=== PATIENT | male | born 1955 | race Caucasian/White ===

== ENCOUNTER 2017-10-09 21:25 | Observation (INO) | payer OTHER ==
[~2017-10-09] VITALS: Ht 167.6 cm; Wt 82.8 kg
[2017-10-09 21:26] VITALS: BP 158/99; PULSE 98; RESP 20; TEMP 98.7; O2SAT 97
[2017-10-09 21:37] VITALS: BP 139/88; PULSE 85; RESP 16; O2SAT 98
[2017-10-09] MEDS ORDERED: GLIP5TAB8 PO (21:41)
--- NOTE | 2017-10-09 21:49 | PD ---
HPI Chief Complaint: CHEST PAIN Time Seen by Provider: 21:36 Travel History International Travel<30 days: No Contact w/Intl Traveler<30days: No Traveled to known affect area: No History of Present Illness HPI PATIENT C/O 4 HR CHEST PAIN, SHARP, SUBSTERNAL, NONRADIATING, 7/10 ASSOCIATED WITH SOB AND DRY COUGH...NO ALLEVIATING/AGGRAVATING FACTORS...DENIES ASSOC FACTORS SUCH TAYLOR/VISUAL CHANGES/FEVER/ABD PAIN/BACK PAIN/N/V/D/ RN NOTES REVIEWED, PATIENT IS NEW TO HOSPITAL AND CITY (FROM [place], RECENTLY MOVED) ALL:DENIES PMHX SIG FOR DM, CHOL, HTN. NO PCP DENIED ANY HEART/CHEST/ABDOMINAL SURGERY PFSH Social History Tobacco Use: No Allergies-Medications (Allergen,Severity, Reaction): Coded Allergies: No Known Allergies (Unverified , 10/09/17) Reported Meds & Prescriptions Reported Meds & Active Scripts Active Reported Losartan (Losartan Potassium) 25 Mg Tab Unknown Dose PO DAILY Lovastatin 10 Mg Tab 10 Mg PO DAILY Glipizide 5 Mg Tab 5 Mg PO BIDAC Take 30 minutes before a meal Review of Systems General / Constitutional: No: Fever Eyes: No: Visual changes HENT: No: Headaches Cardiovascular: Positive: Chest Pain or Discomfort Respiratory: Positive: Cough Gastrointestinal: No: Abdominal Pain Genitourinary: No: Dysuria Musculoskeletal: No: Pain Skin: No Rash Neurologic: No: Weakness Psychiatric: No: Depression Endocrine: No: Polydipsia Hematologic/Lymphatic: No: Easy Bruising Physical Exam Narrative GENERAL: SKIN: Warm and dry. HEAD: Atraumatic. Normocephalic. EYES: Pupils equal and round. No scleral icterus. No injection or drainage. ENT: No nasal bleeding or discharge. Mucous membranes pink and moist. NECK: Trachea midline. No JVD. CARDIOVASCULAR: Regular rate and rhythm. RESPIRATORY: No accessory muscle use. Clear to auscultation. Breath sounds equal bilaterally. GASTROINTESTINAL: Abdomen soft, non-tender, nondistended. MUSCULOSKELETAL: Extremities without clubbing, cyanosis, or edema. No obvious deformities. NEUROLOGICAL: Awake and alert. No obvious cranial nerve deficits. Motor grossly within normal limits. Five out of 5 muscle strength in the arms and legs. Normal speech. PSYCHIATRIC: Appropriate mood and affect; insight and judgment normal. Data Data Last Documented VS Vital Signs Date Time Temp Pulse Resp B/P (MAP) Pulse Ox O2 Delivery O2 Flow Rate FiO2 10/10/17 01:20 72 16 115/65 (82) 99 Room Air 10/09/17 22:07 2.00 10/09/17 21:26 98.7 Orders Orders Electrocardiogram (10/09/17 21:36) B-Type Natriuretic Peptide (10/09/17 21:36) Ckmb (Isoenzyme) Profile (10/09/17 21:36) Complete Blood Count With Diff (10/09/17 21:36) Comprehensive Metabolic Panel (10/09/17 21:36) D-Dimer (10/09/17 21:36) Prothrombin Time / Inr (Pt) (10/09/17 21:36) Act Partial Throm Time (Ptt) (10/09/17 21:36) Troponin I (10/09/17 21:36) Lipase (10/09/17 21:36) Chest, Single Ap (10/09/17 21:36) Ecg Monitoring (10/09/17 21:36) Bilateral Bp Monitoring (10/09/17 21:36) Iv Access Insert/Monitor (10/09/17 21:36) Oximetry (10/09/17 21:36) Oxygen Administration (10/09/17 21:36) Aspirin Chew (Aspirin Chew) (10/09/17 22:15) Nitroglycerin 2% Oint (Nitroglycerin 2% (10/09/17 22:15) Morphine Inj (Morphine Inj) (10/09/17 22:45) CKMB (10/09/17 21:50) CKMB% (10/09/17 21:50) Ventilation & Perfusion Scan (10/10/17 23:20) Admit Order (Ed Use Only) (10/10/17 ) Dianeticist / Telemetry [email or web address].[email or web address] (10/10/17 03:19) Activity Bed Rest (10/10/17 03:19) Notify Dr: Other (10/10/17 03:19) Labs Laboratory Tests Test 10/09/17 21:50 White Blood Count 10.7 TH/MM3 Red Blood Count 4.20 MIL/MM3 Hemoglobin 12.2 GM/DL Hematocrit 37.4 % Mean Corpuscular Volume 88.9 FL Mean Corpuscular Hemoglobin 29.1 PG Mean Corpuscular Hemoglobin Concent 32.7 % Red Cell Distribution Width 14.2 % Platelet Count 276 TH/MM3 Mean Platelet Volume 8.3 FL Neutrophils (%) (Auto) 58.1 % Lymphocytes (%) (Auto) 27.1 % Monocytes (%) (Auto) 9.2 % Eosinophils (%) (Auto) 4.7 % Basophils (%) (Auto) 0.9 % Neutrophils # (Auto) 6.2 TH/MM3 Lymphocytes # (Auto) 2.9 TH/MM3 Monocytes # (Auto) 1.0 TH/MM3 Eosinophils # (Auto) 0.5 TH/MM3 Basophils # (Auto) 0.1 TH/MM3 CBC Comment DIFF FINAL Differential Comment Prothrombin Time 10.5 SEC Prothromb Time International Ratio 1.0 RATIO Activated Partial Thromboplast Time 25.4 SEC D-Dimer Quantitative (PE/DVT) 0.66 MG/L FEU Blood Urea Nitrogen 60 MG/DL Creatinine 2.71 MG/DL Random Glucose 78 MG/DL Total Protein 8.5 GM/DL Albumin 3.8 GM/DL Calcium Level 8.8 MG/DL Alkaline Phosphatase 61 U/L Aspartate Amino Transf (AST/SGOT) 17 U/L Alanine Aminotransferase (ALT/SGPT) 32 U/L Total Bilirubin 0.3 MG/DL Sodium Level 137 MEQ/L Potassium Level 4.5 MEQ/L Chloride Level 108 MEQ/L Carbon Dioxide Level 19.5 MEQ/L Anion Gap 10 MEQ/L Estimat Glomerular Filtration Rate 24 ML/MIN Total Creatine Kinase 239 U/L Creatine Kinase MB 4.6 NG/ML Troponin I LESS THAN 0.02 NG/ML B-Type Natriuretic Peptide 10 PG/ML Lipase 346 U/L [facility] Medical Decision Making Medical Screen Exam Complete: Yes Emergency Medical Condition: Yes Medical Record Reviewed: Yes Interpretation(s) EKG APPEARED TO HAVE LEAD REVERSAL WITH UPRIGHT P WAVE ON AVR YET DOWNWARD P WAVES ON I/AVL/II ETC, EKG WAS REPEATED AND SHOWED SAME PATTERN. Differential Diagnosis STEMI V NONSTEMI V PNA V PE V PULM EDEMA Narrative Course V/Q SCAN LOW RISK FOR PE...WAS FOUND TO HAVE E/O RENAL INSUFFICIENCY UNKNOWN CHRONICITY DUE TO RECENTLY MOVED TO [facility] AND DENIES H/O CKD....TROP NEG BUT SLIGHTLY ELEV CKMB...PATIENT IS PAINFREE AT THIS POINT. Diagnosis Primary Impression: CHEST PAIN R/O [place] Additional Impression: RENAL INSUFFICIENCY UNKNOWN CHRONICITY Admitting Information Admitting Physician Requests: Observation Martin Boyce MD Oct 09, 2017 21:49
[2017-10-09] MEDS ORDERED: LOVA10TA PO (21:57)
[2017-10-09] MEDS ORDERED: LOSA25TA PO (21:58)
--- NOTE | 2017-10-09 22:00 | RADRPT ---
EXAM DATE/TIME: 10/09/2017 21:46 [facility] COMPARISON: No previous studies available for comparison. INDICATIONS : Chest pain. MEDICAL HISTORY : Diabetes mellitus type II. Hypertension Hypercholesterolemia. SURGICAL HISTORY : None. ENCOUNTER: Initial ACUITY: 1 day PAIN SCORE: 9/10 LOCATION: Bilateral chest FINDINGS: A single view of the chest demonstrates the lungs to be symmetrically aerated without evidence of mas s, infiltrate or effusion. Mild basilar atelectasis. Mild cardiomegaly. Tortuous aorta. CONCLUSION: 1. Mild basilar atelectasis. No effusion. Heart size mildly enlarged a tortuous aorta. Healing left p osterior rib fractures. Francisco Camacho MD on October 09, 2017 at 21:57 Board Certified Radiologist. This report was verified electronically.
[2017-10-09 22:06] VITALS: BP 139/88; PULSE 81; RESP 16; O2SAT 98
[2017-10-09 22:07] VITALS: O2SAT 98
[2017-10-09] MEDS ORDERED: NITROGLYCERIN 2% OINT 1 GM PACKET TOP ONE (22:15)
[2017-10-09] MEDS ORDERED: MORPHINE SULFATE 4 MG/ML INJ IV PUSH ONE (22:15)
[2017-10-09] MEDS ORDERED: ASPIRIN 81 MG CHEW TAB PO ONE (22:15)
[2017-10-09 22:23] LABS: AUTOMATED NEUTROPHIL # 6.2 TH/MM3 (1.8-7.7); BASOPHIL # 0.1 TH/MM3 (0-0.2); BASOPHIL % 0.9 % (0.0-2.0); EOSINOPHIL # 0.5 TH/MM3 (0-0.4); EOSINOPHIL % 4.7 % (0.0-4.0); HEMATOCRIT 37.4 % (39.0-51.0); HEMO FLAGS DIFF FINAL; LYMPH % 27.1 % (9.0-44.0); LYMPHOCYTE # 2.9 TH/MM3 (1.0-4.8); MEAN CELL VOLUME 88.9 FL (80.0-100.0); MEAN CORPUSCULAR HEMOGLOBIN 29.1 PG (27.0-34.0); MEAN CORPUSCULAR HGB CONC 32.7 % (32.0-36.0); MONO % 9.2 % (0.0-8.0); NEUT % 58.1 % (16.0-70.0); PLATELET COUNT 276 TH/MM3 (150-450); RED CELL DISTRIBUTION WIDTH 14.2 % (11.6-17.2); WHITE BLOOD COUNT 10.7 TH/MM3 (4.0-11.0)
[2017-10-09 22:37] LABS: APTT (PATIENT) 25.4 SEC (24.3-30.1); PROTHROMBIN TIME - PATIENT 10.5 SEC (9.8-11.6)
[2017-10-09] MEDS ORDERED: MORPHINE SULFATE 2 MG/ML INJ PO ONE (22:45)
[2017-10-09] MEDS ORDERED: MORPHINE SULFATE 2 MG/ML INJ IV ONE (22:45)
[2017-10-09 22:58] LABS: ANION GAP 10 MEQ/L (5-15); AST (GOT) 17 U/L (15-37); BICARBONATE 19.5 MEQ/L (21.0-32.0); BLOOD UREA NITROGEN 60 MG/DL (7-18); CHLORIDE 108 MEQ/L (98-107); GLOMERULAR FILTRATION RATE 24 ML/MIN (>89); POTASSIUM 4.5 MEQ/L (3.5-5.1); SODIUM (NA) 137 MEQ/L (136-145)
[2017-10-09 23:04] LABS: ALKALINE PHOSPHATASE 61 U/L (45-117); ALT (GPT) 32 U/L (12-78); CREATINE KINASE 239 U/L (39-308); TOTAL BILIRUBIN ADULT 0.3 MG/DL (0.2-1.0)
[2017-10-09 23:16] LABS: CKMB 4.6 NG/ML (0.5-3.6)
[2017-10-10 01:20] VITALS: BP 115/65; PULSE 72; RESP 16; O2SAT 99
--- NOTE | 2017-10-10 02:22 | RADRPT ---
EXAM DATE/TIME: 10/10/2017 01:47 [facility] COMPARISON: No previous studies available for comparison. INDICATIONS : Substernal chest pain with dyspnea. DOSE: 8.5 mCi Tc99m MAA IV 1.8 mCi Tc99m DTPA aerosol MEDICAL HISTORY : Hypertension. Diabetes mellitus type 2. SURGICAL HISTORY : Appendectomy. Right hip. ENCOUNTER: Initial ACUITY: 1 day PAIN SCALE: 4/10 LOCATION: Left chest TECHNIQUE: Following five minutes of tidal breathing of DTPA aerosol, planar images of the lungs were performed in eight projections. The patient was then injected with MAA, and eight-view perfusion scan was perf ormed. FINDINGS: There is a homogeneous pattern of aerosol delivery to the periphery of both lungs. No focal ventilat ory defects are seen. The perfusion lung scan demonstrates a homogenous pattern of uptake in both lungs. No segmental or s ubsegmental defects are seen. CONCLUSION: Normal pattern of pulmonary perfusion. Study is low probability for embolus. Robert Townsend MD on October 10, 2017 at 2:20 Board Certified Radiologist. This report was verified electronically.
[2017-10-10] MEDS ORDERED: MAGNESIUM HYDROXIDE SUSP 30 ML CUP PO PRN (03:30)
[2017-10-10] MEDS ORDERED: ACETAMINOPHEN 325 MG TAB PO PRN (03:30)
[2017-10-10] MEDS ORDERED: DEXTROSE 50% IN WATER 50 ML VIAL(D50) IV PUSH PRN (03:30)
[2017-10-10] MEDS ORDERED: SENNOSIDES 8.6 MG TAB PO PRN (03:30)
[2017-10-10] MEDS ORDERED: BISACODYL 10 MG SUPP RECTAL PRN (03:30)
[2017-10-10] MEDS ORDERED: ONDANSETRON HCL 4 MG/2 ML VIAL IVP PRN (03:30)
[2017-10-10] MEDS ORDERED: GLUCAGON 1 MG/ML VIAL OTHER PRN (03:30)
[2017-10-10] MEDS ORDERED: SODIUM CHLORIDE 0.9% FLUSH 10 ML FLUSH IV FLUSH PRN (03:30)
[2017-10-10] MEDS ORDERED: LACTULOSE SYRUP 20 GM/30 ML CUP PO PRN (03:30)
--- NOTE | 2017-10-10 04:06 | HHI.HP ---
[facility] Admission Diagnosis CP R/O MA Diagnoses: (1) Chest pain Diagnosis: Principal (2) Renal insufficiency Diagnosis: Principal (3) HTN (hypertension) Diagnosis: Principal (4) DM (diabetes mellitus) Diagnosis: Principal Travel History International Travel<30 Days: No Contact w/Intl Traveler <30 Da: No Traveled to Known Affected Are: No History of Present Illness This is a 62-year-old male with a PMH of HTN, Hyperlipidemia and DM who presented to the ER with complaints of chest pain starting earlier today. Reports associated SOB and cough. No fever, chills or sick contacts. On arrival, CBC essentially unremarkable except for hemoglobin 12.2. Creatinine 2.71, no previous labs for comparison. Troponin negative. D-dimer 0.66. CXR with mild basilar atelectasis. V/Q Scan low probability for PE. S/p NTG w/ improvement. Review of Systems Except as stated in HPI: all other systems reviewed are Neg ROS: 14 point review of systems otherwise negative. Past Family Social History Past Medical History PMH: HTN, Hyperlipidemia and DM Past Surgical History PAST SURGICAL HISTORY: Appendectomy, Right Hip Surgery Allergies: Coded Allergies: No Known Allergies (Unverified , 10/09/17) Family History PAST FAMILY HISTORY: Reviewed, positive for DM. Social History PAST SOCIAL HISTORY: Negative for alcohol, tobacco or drugs. Physical Exam Vital Signs Vital Signs Date Time Temp Pulse Resp B/P (MAP) Pulse Ox O2 Delivery O2 Flow Rate FiO2 10/10/17 01:20 72 16 115/65 (82) 99 Room Air 10/09/17 22:07 98 10/09/17 22:07 98 Nasal Cannula 2.00 10/09/17 22:07 97 Nasal Cannula 10/09/17 22:06 81 16 139/88 (105) 98 Nasal Cannula 2.00 10/09/17 21:37 85 16 139/88 (105) 98 10/09/17 21:26 98.7 98 20 158/99 (118) 97 Room Air Physical Exam PE: GENERAL: Middle-aged male in no acute distress. HEENT: PERRLA, EOMI. No scleral icterus or conjunctival pallor. No lid lag or facial droop. CARDIOVASCULAR: Regular rate and rhythm. No obvious murmurs to auscultation. No chest tenderness to palpation. RESPIRATORY: No obvious rhonchi or wheezing. Clear to auscultation. Breath sounds equal bilaterally. GASTROINTESTINAL: Abdomen soft, non-tender, nondistended. BS normal. MUSCULOSKELETAL: Extremities without clubbing, cyanosis, or edema. No obvious deformities. NEUROLOGICAL: Awake, alert and oriented x4. No focal neurologic deficits. Moving both upper and lower extremities spontaneously. Laboratory Laboratory Tests Test 10/09/17 21:50 White Blood Count 10.7 Red Blood Count 4.20 Hemoglobin 12.2 Hematocrit 37.4 Mean Corpuscular Volume 88.9 Mean Corpuscular Hemoglobin 29.1 Mean Corpuscular Hemoglobin Concent 32.7 Red Cell Distribution Width 14.2 Platelet Count 276 Mean Platelet Volume 8.3 Neutrophils (%) (Auto) 58.1 Lymphocytes (%) (Auto) 27.1 Monocytes (%) (Auto) 9.2 Eosinophils (%) (Auto) 4.7 Basophils (%) (Auto) 0.9 Neutrophils # (Auto) 6.2 Lymphocytes # (Auto) 2.9 Monocytes # (Auto) 1.0 Eosinophils # (Auto) 0.5 Basophils # (Auto) 0.1 CBC Comment DIFF FINAL Differential Comment Prothrombin Time 10.5 Prothromb Time International Ratio 1.0 Activated Partial Thromboplast Time 25.4 D-Dimer Quantitative (PE/DVT) 0.66 Blood Urea Nitrogen 60 Creatinine 2.71 Random Glucose 78 Total Protein 8.5 Albumin 3.8 Calcium Level 8.8 Alkaline Phosphatase 61 Aspartate Amino Transf (AST/SGOT) 17 Alanine Aminotransferase (ALT/SGPT) 32 Total Bilirubin 0.3 Sodium Level 137 Potassium Level 4.5 Chloride Level 108 Carbon Dioxide Level 19.5 Anion Gap 10 Estimat Glomerular Filtration Rate 24 Total Creatine Kinase 239 Creatine Kinase MB 4.6 Troponin I LESS THAN 0.02 B-Type Natriuretic Peptide 10 Lipase 346 Result Diagram: 10/09/17214910/09/172149 Caprini VTE Risk Assessment Caprini VTE Risk Assessment: No/Low Risk (score <= 1) Caprini Risk Assessment Model Point Value = 1 Point Value = 2 Point Value = 3 Point Value = 5 Age 41-60 Minor surgery BMI > 25 kg/m2 Swollen legs Varicose veins or History of unexplained or recurrent spontaneous Oral contraceptives or hormone replacement Sepsis (< 1 month) Serious lung disease, including pneumonia (< 1 month) Abnormal pulmonary function Acute myocardial infarction Congestive heart failure (< 1 month) History of inflammatory bowel disease Medical patient at bed rest Age 61-74 Arthroscopic surgery Major open surgery (> 45 min) Laparoscopic surgery (> 45 min) Malignancy Confined to bed (> 72 hours) Immobilizing plaster cast Central venous access Age >= 75 History of VTE Family history of VTE Factor V Leiden Prothrombin [id number] Lupus anticoagulant Anticardiolipin antibodies Elevated serum homocysteine Heparin-induced thrombocytopenia Other congenital or acquired thrombophilia Stroke (< 1 month) Elective arthroplasty Hip, pelvis, or leg fracture Acute spinal cord injury (< 1 month) Prophylaxis Regimen Total Risk Factor Score Risk Level Prophylaxis Regimen 0-1 Low Early ambulation 2 Moderate Order ONE of the following: *Sequential Compression Device (SCD) *Heparin 5000 units SQ BID 3-4 Higher Order ONE of the following medications: *Heparin 5000 units SQ TID *Enoxaparin/Lovenox 40 mg SQ daily (WT < 150 kg, CrCl > 30 mL/min) *Enoxaparin/Lovenox 30 mg SQ daily (WT < 150 kg, CrCl > 10-29 mL/min) *Enoxaparin/Lovenox 30 mg SQ BID (WT < 150 kg, CrCl > 30 mL/min) AND/OR *Sequential Compression Device (SCD) 5 or more Highest Order ONE of the following medications: *Heparin 5000 units SQ TID (Preferred with Epidurals) *Enoxaparin/Lovenox 40 mg SQ daily (WT < 150 kg, CrCl > 30 mL/min) *Enoxaparin/Lovenox 30 mg SQ daily (WT < 150 kg, CrCl > 10-29 mL/min) *Enoxaparin/Lovenox 30 mg SQ BID (WT < 150 kg, CrCl > 30 mL/min) AND *Sequential Compression Device (SCD) Assessment and Plan Problem List: (1) Chest pain ICD Code: R07.9 - Chest pain, unspecified (2) Renal insufficiency ICD Code: N28.9 - Disorder of kidney and ureter, unspecified (3) HTN (hypertension) ICD Code: I10 - Essential (primary) hypertension (4) DM (diabetes mellitus) ICD Code: E11.9 - Type 2 diabetes mellitus without complications Assessment and Plan A/P: 1. Chest Pain: acute onset of chest pain, s/p NTG w/ relief, currently chest pain free. No h/o CAD. Trop negative, EKG w/ no acute ischemia. Admit for Observation, telemetry, check serial cardiac enzymes, Lipid Profile, TSH, start ASA/Statin/Metoprolol. Cardio eval as needed. 2. Renal Insufficiency: Creatinine 2.71. Unknown chronicity, recently moved from [place], no previous labs for comparison, denies known h/o renal disease. Check U/a, UDS, Renal US, IVF for hydration, repeat labs in am. Nephrology eval as needed. 3. HTN: BP 150's on arrival, likely compounded by chest pain, currently 115/65 , HR 72. Monitor BP. 4. DM: Sliding scale w/ Accu-Cheks. Check Hgb A1c. 5. DVT Prophylaxis: Heparin 6. Social work for d/c planning as needed. 7. Case discussed w/ ER physician at length. Brunilda Murillo MD Oct 10, 2017 04:06
[2017-10-10 04:25] VITALS: BP 139/72; PULSE 82; RESP 16; O2SAT 99
[2017-10-10 05:30] VITALS: BP 107/75; PULSE 78; RESP 22; TEMP 97.6; O2SAT 96
[2017-10-10] MEDS: MORPHINE SULFATE 2 MG/ML INJ IV PUSH PRN ×3 (06:32→18:45)
[2017-10-10] MEDS ORDERED: glipiZIDE 5 MG TAB PO SCH (07:00)
[2017-10-10] MEDS: INSULIN ASPART SUPPLEMENTAL SCALE SQ SCH ×4 (08:00→21:00)
[2017-10-10 08:26] LABS: AUTOMATED NEUTROPHIL # 6.1 TH/MM3 (1.8-7.7); BASOPHIL # 0.1 TH/MM3 (0-0.2); EOSINOPHIL # 0.9 TH/MM3 (0-0.4); EOSINOPHIL % 9.2 % (0.0-4.0); HEMATOCRIT 36.9 % (39.0-51.0); HEMO FLAGS DIFF FINAL; LYMPH % 20.7 % (9.0-44.0); LYMPHOCYTE # 2.1 TH/MM3 (1.0-4.8); MEAN CELL VOLUME 89.1 FL (80.0-100.0); MEAN CORPUSCULAR HEMOGLOBIN 30.1 PG (27.0-34.0); MEAN CORPUSCULAR HGB CONC 33.7 % (32.0-36.0); MONO % 8.3 % (0.0-8.0); NEUT % 60.8 % (16.0-70.0); PLATELET COUNT 285 TH/MM3 (150-450); RED BLOOD COUNT 4.14 MIL/MM3 (4.50-5.90); RED CELL DISTRIBUTION WIDTH 14.1 % (11.6-17.2); WHITE BLOOD COUNT 10.1 TH/MM3 (4.0-11.0)
[2017-10-10 08:46] LABS: ANION GAP 11 MEQ/L (5-15); AST (GOT) 19 U/L (15-37); BICARBONATE 19.9 MEQ/L (21.0-32.0); BLOOD UREA NITROGEN 61 MG/DL (7-18); CHLORIDE 108 MEQ/L (98-107); GLOMERULAR FILTRATION RATE 26 ML/MIN (>89); POTASSIUM 4.5 MEQ/L (3.5-5.1); SODIUM (NA) 139 MEQ/L (136-145)
[2017-10-10 08:47] LABS: ALT (GPT) 32 U/L (12-78)
[2017-10-10 08:57] LABS: ALKALINE PHOSPHATASE 56 U/L (45-117); HDL CHOLESTEROL 43.5 MG/DL (40.0-60.0); LDL CHOLESTEROL 94 MG/DL (0-99); TOTAL BILIRUBIN ADULT 0.3 MG/DL (0.2-1.0)
[2017-10-10] MEDS ORDERED: METOPROLOL TARTRATE 25 MG TAB PO SCH (09:00)
[2017-10-10] MEDS ORDERED: PRAVASTATIN SOD 10 MG TAB PO SCH (09:00)
[2017-10-10] MEDS: SODIUM CHLORIDE 0.9% FLUSH 10 ML FLUSH IV FLUSH SCH ×2 (09:00→23:18)
[2017-10-10] MEDS: ASPIRIN EC 81 MG TABEC PO SCH (09:00)
[2017-10-10] MEDS: HEPARIN SODIUM - SQ 10,000 UNITS/ML VIAL SQ SCH ×2 (09:00→21:00)
[2017-10-10] MEDS: DOCUSATE SODIUM 50 MG/SENNA 8.6 MG TAB PO SCH ×2 (09:04→21:00)
--- NOTE | 2017-10-10 10:22 | HHI.PR ---
Subjective Remarks Follow for chest pain Patient is a poor historian. Patient stated that chest pain started yesterday. Describes chest pain as pressure-like, radiating to his left lower cheek/jaw. Deny nausea vomiting with the chest pain. Patient stated that with the chest pain started his friend took him to the emergency department. He is unsure when the chest pain stopped but later described the chest pain more like an achy type of pain. Different from what his initial chest pain was. Patient unsure if pain was relieved by nitroglycerin but stated from prior physician chest pain was relieved with nitroglycerin. During the chest pain patient also has shortness of breathing. Patient smokes 1 pack per day for about 20 years. He stated that his father had extensive heart disease. Objective Vitals Vital Signs Date Time Temp Pulse Resp B/P (MAP) Pulse Ox O2 Delivery O2 Flow Rate FiO2 10/10/17 06:37 14 10/10/17 05:30 97.6 78 22 107/75 (86) 96 10/10/17 05:00 10/10/17 04:25 82 16 139/72 (94) 99 Room Air 10/10/17 01:20 72 16 115/65 (82) 99 Room Air 10/09/17 22:07 98 10/09/17 22:07 98 Nasal Cannula 2.00 10/09/17 22:07 97 Nasal Cannula 10/09/17 22:06 81 16 139/88 (105) 98 Nasal Cannula 2.00 10/09/17 21:37 85 16 139/88 (105) 98 10/09/17 21:26 98.7 98 20 158/99 (118) 97 Room Air Result Diagram: 10/10/17 0811 10/10/17 0811 Objective Remarks GENERAL: in NAD CARDIOVASCULAR: Regular rate and rhythm without murmurs, gallops, or rubs. + TTP reproducible on chest wall. RESPIRATORY: Breath sounds equal bilaterally. No accessory muscle use. GASTROINTESTINAL: Abdomen soft, non-tender, nondistended. MUSCULOSKELETAL: No cyanosis, or edema. BACK: Nontender without obvious deformity. No CVA tenderness. Medications and IVs Current Medications Aspirin (Aspirin Chew) 162 mg ONCE ONCE PO Last administered on 10/09/17t 22: 35; Start 10/09/17 at 22:15; Stop 10/09/17 at 22:16; Status DC Morphine Sulfate (Morphine Inj) 2 mg ONCE ONCE IV PUSH ; Start 10/09/17 at 22: 15; Stop 10/09/17 at 22:16; Status Cancel Nitroglycerin (Nitroglycerin 2% Oint) 0.5 inch ONCE ONCE TOP Last administered on 10/09/17 22:34; Start 10/09/17 at 22:15; Stop 10/09/17 at 22 :16; Status DC Morphine Sulfate (Morphine Inj) 2 mg ONCE ONCE PO ; Start 10/09/17 at 22:45; Stop 10/09/17 at 22:46; Status Cancel Morphine Sulfate (Morphine Inj) 2 mg ONCE ONCE IV Last administered on 22:44; Start 10/09/17 at 22:45; Stop 10/09/17 at 22:46; Status DC Dextrose (D50w (Vial) Inj) 50 ml UNSCH PRN IV PUSH HYPOGLYCEMIA-SEE COMMENTS; Start 10/10/17 at 03:30 Glucagon (Glucagon Inj) 1 mg UNSCH PRN OTHER HYPOGLYCEMIA-SEE COMMENTS; Start 10/10/17 at 03:30 Insulin Aspart (NovoLOG SUPPLEMENTAL SCALE) 1 ACHS SLIDING SCALE SQ ; Start at 08:00 Sodium Chloride (NS Flush) 2 ml UNSCH PRN IV FLUSH FLUSH AFTER USING IV ACCESS Last administered on 10/10/17 06:32; Start 10/10/17 at 03:30 Sodium Chloride (NS Flush) 2 ml BID IV FLUSH Last administered on 10/10/17 09 :00; Start 10/10/17 at 09:00 Ondansetron HCl (Zofran Inj) 4 mg Q6H PRN IVP NAUSEA OR VOMITING; Start at 03:30 Heparin Sodium (Porcine) (Heparin Inj) 5,000 units Q12H SQ ; Start 10/10/17 at 09:00 Acetaminophen (Tylenol) 650 mg Q6H PRN PO FEVER/PAIN SCALE 1 TO 2; Start 10/10 at 03:30 Acetaminophen/ Hydrocodone Bitart (Manor 5-325 Mg) 1 tab Q4H PRN PO PAIN SCALE 3 TO 5; Start 10/10/17 at 03:30 Morphine Sulfate (Morphine Inj) 2 mg Q3H PRN IV PUSH PAIN SCALE 6 TO 10 Last administered on 10/10/17 06:32; Start 10/10/17 at 03:45 Senna/Docusate Sodium (Mally-Colace) 1 tab BID PO Last administered on 09:04; Start 10/10/17 at 09:00 Magnesium Hydroxide (Milk Of Magnesia Liq) 30 ml Q12H PRN PO Mild constipation ; Start 10/10/17 at 03:30 Sennosides (Senokot) 17.2 mg Q12H PRN PO Moderate constipation; Start at 03:30 Bisacodyl (Dulcolax Supp) 10 mg DAILY PRN RECTAL SEVERE CONSITIPATION; Start 10/10/17 at 03:30 Lactulose (Lactulose Liq) 30 ml DAILY PRN PO SEVERE CONSITIPATION; Start 10/10 at 03:30 Aspirin (Ecotrin Ec) 81 mg DAILY PO ; Start 10/10/17 at 09:00 Metoprolol Tartrate (Lopressor) 12.5 mg Q12HR PO Last administered on 09:04; Start 10/10/17 at 09:00 Glipizide (Glucotrol) 5 mg BIDAC PO Last administered on 10/10/17 06:24; Start 10/10/17 at 07:00; Status Future Hold Pravastatin Sodium (Pravachol) 10 mg DAILY PO Last administered on 10/10/17 09:04; Start 10/10/17 at 09:00 A/P Problem List: (1) Chest pain ICD Code: R07.9 - Chest pain, unspecified (2) Renal insufficiency ICD Code: N28.9 - Disorder of kidney and ureter, unspecified (3) HTN (hypertension) ICD Code: I10 - Essential (primary) hypertension (4) DM (diabetes mellitus) ICD Code: E11.9 - Type 2 diabetes mellitus without complications Assessment and Plan 52-year-old male history of hypertension, type 2 diabetes, and tobacco dependence who presented with chest pain Chest pain -Per medical records chest pain was relieved by nitroglycerin. Troponin so far negative. Chest pain now is different from his initial chest pain. Patient currently on aspirin. Will add Nitropaste, seen as needed. LDL 94. Consider statin if this is true ACS. Will get nuclear stress test and echo. -Due to patient being high risks and concerns for this being cardiac in nature will consult spa supervisor for further recommendation. Renal Insufficiency: Creatinine 2.71. Unknown chronicity, recently moved from [place], no previous labs for comparison, denies known h/o renal disease. -Strict ins and outs. -Continue to monitor creatinine. -Avoid nephrotoxins. HTN: -Improved. Continue current regimen. DM: -continue with Sliding scale w/ Accu-Cheks. -Pending hemoglobin [id number] HgA1C DVT Prophylaxis: Heparin Paz Man MD Oct 10, 2017 10:22
--- NOTE | 2017-10-10 10:54 | EKG ---
Date Performed: 10/09/2017 Time Performed: 21:36:27 PTAGE: 62 years EKG: Sinus rhythm POSSIBLE SEPTAL MYOCARDIAL INFARCTION POSSIBLE INFERIOR MYOCARDIAL INFARCTION ABNORMAL ECG NO PREVIOUS TRACING DOCTOR: Shorty Hammond Interpretating Date/Time 10/10/2017 10:53:31
[2017-10-10 11:05] LABS: HEMOGLOBIN A1a 1.1 %; HEMOGLOBIN A1b 2.7 %; HEMOGLOBIN Ao 80.4 %; HEMOGLOBIN LA1C 2.7 %; HEMOGLOBIN P3 6.8 %
[2017-10-10] MEDS: NITROGLYCERIN 2% OINT 1 GM PACKET TOPICAL SCH ×3 (12:00→18:00)
--- NOTE | 2017-10-10 12:16 | MB ---
cc: LAZARO FARRELL M.D. DATE OF CONSULTATION: 10/10/2017 REASON FOR CONSULTATION: Chest pain. HISTORY OF PRESENT ILLNESS: The patient is a 62-year-old white male with a history of hypertension, hyperlipidemia, diabetes, who was in his usual state of health up until the day of admission when he began to experience a substernal chest discomfort described as "tightness" associated with shortness of breath, and possibly lightheadedness. He felt weak and fell to the ground. A bystander offered to take him to the emergency department for further evaluation and treatment. The patient cannot recall any other episodes of chest discomfort. Today his chest feels "sore to touch." He denies pleurisy, syncope, near-syncope, palpitations, pedal edema, paroxysmal nocturnal dyspnea. Occasionally he feels lightheaded upon standing. PAST MEDICAL HISTORY: 1. Hypertension. 2. Diabetes. 3. Hyperlipidemia. PAST SURGICAL HISTORY: 1. Appendectomy. 2. Hernia repair. CARDIAC MEDICATIONS AT HOME: 1. Losartan 25 milligrams qd. 2. Lovastatin 10 mg daily. ALLERGIES NO KNOWN DRUG ALLERGIES. FAMILY HISTORY The patient's father sustained a myocardial infarction. The patient is unsure of his father's age at the time of the event. SOCIAL HISTORY The patient quit smoking about a year ago. He denies alcohol abuse. REVIEW OF SYSTEMS: As in the history of present illness, otherwise negative or noncontributory. He also denies headache, abdominal pain, melena, dyspepsia, bright red blood per rectum. PHYSICAL EXAMINATION: VITAL SIGNS: Blood pressure is 107/75 with a pulse of 78, respiratory rate 22. GENERAL: He is a well-developed, well-nourished white male in no acute distress. HEENT: Jugular venous pressure is normal. Carotid pulses are 2+ bilaterally and without bruits. CHEST: Reveals clear lung zelaya. There is chest wall tenderness in the left parasternal region, reproducing his chest pain. CARDIAC: He has a regular rhythm and rate without S3-S4 or murmur. ABDOMEN: He has a soft, obese, nontender abdomen. Bowel sounds are present. There is no definite hepatosplenomegaly. EXTREMITIES: No clubbing, cyanosis or edema. EKG: Normal sinus rhythm, possible inferior infarct and possible septal infarct, age undetermined. LABORATORY DATA: WBC 10.1, hemoglobin 12.5, platelet count 285, potassium 4.5, BUN 61, creatinine 2.49, negative cardiac enzymes. Total cholesterol 174, LDL 94, HDL 43, triglycerides 183. IMPRESSION: Somewhat atypical chest pains in this 62-year-old white male with a history of hypertension, diabetes, hyperlipidemia. The patient is is a vague historian. Cardiac enzymes are negative for myocardial infarction. EKG shows no acute ST-segment or T-wave changes. There is also chest wall tenderness on exam, reproducing his symptoms. He does have a number of risk factors for coronary disease and his EKG does suggest the possibility of previous septal and inferior infarcts. At this point he is not a good candidate for invasive cardiac evaluation with the increased risk of dye induced renal failure. RECOMMENDATIONS 1. Medical therapy of possible underlying coronary artery disease. 2. Change the nitrate to oral administration. 3. Continue beta maurilio therapy and aspirin. 4. Check a 2-D echo to assess his left ventricular and valvular function. 5. Continue statin therapy; overall would recommend atorvastatin or Crestor. MD MANNIE Mcmullen/DOUG /11:46 AM /12:05 PM MTDD
[2017-10-10 12:20] VITALS: BP 112/60; PULSE 68; RESP 20; TEMP 97.8; O2SAT 95
[2017-10-10] MEDS: ACETAMINOPHEN/HYDROcodone 325 MG/5 MG TAB PO PRN ×2 (12:43→21:39)
[2017-10-10] MEDS: ISOSORBIDE MONONITRATE 60 MG TAB PO SCH (12:43)
--- NOTE | 2017-10-10 13:38 | RADRPT ---
EXAM DATE/TIME: 10/10/2017 13:06 [facility] COMPARISON: No previous studies available for comparison. INDICATIONS : Increased BUN/creatinine. MEDICAL HISTORY : Hypercholesterolemia. Hypertension. Herniated disc. Diabetes. SURGICAL HISTORY : Appendectomy. Right hip reduction. Hernia repair. ENCOUNTER: Initial ACUITY: 1 day PAIN SCORE: 0/10 LOCATION: Bilateral flank MEASUREMENTS: RIGHT KIDNEY: 11.0 x 5.0 x 5.5 cm LEFT KIDNEY: 10.5 x 3.7 x 5.3 cm FINDINGS: RIGHT KIDNEY: Renal cortex is normal in thickness and increased in echotexture. No hydronephrosis, or mass. Echo genic 7 x 7 x 4 mm possible stone mid right kidney LEFT KIDNEY: Renal cortex is normal in thickness and increased in echotexture. No hydronephrosis, or mass other than small cortical cyst mid pole measuring 1.8 cm. Question of 7 mm stone lower pole.. BLADDER: Within normal limits given the degree of distension. CONCLUSION: Both kidneys show some increased cortical echogenicity suggesting chronic medical renal disease. Smal l left renal cyst. Bilateral solitary questionable calcifications, could be stones. Ashok Lopez MD on October 10, 2017 at 13:34 Board Certified Radiologist. This report was verified electronically.
[2017-10-10 16:05] VITALS: BP 115/66; PULSE 97; RESP 18; TEMP 98.5; O2SAT 96
[2017-10-10 20:21] VITALS: BP 131/77; PULSE 103; RESP 24; TEMP 98.7; O2SAT 95
[2017-10-10] MEDS ORDERED: ATORVASTATIN 40 MG TAB PO SCH (21:00)
[2017-10-10] MEDS: METOPROLOL TARTRATE 25 MG TAB PO SCH (23:20)
[2017-10-11 00:34] VITALS: BP 92/55; PULSE 73; RESP 24; TEMP 97.7; O2SAT 94
[2017-10-11] MEDS: NITROGLYCERIN 2% OINT 1 GM PACKET TOPICAL SCH ×2 (01:09→06:44)
[2017-10-11 03:33] VITALS: BP 111/59; PULSE 72; RESP 22; TEMP 98.3; O2SAT 93
[2017-10-11] MEDS: ACETAMINOPHEN/HYDROcodone 325 MG/5 MG TAB PO PRN ×3 (04:13→11:59)
[2017-10-11 08:00] VITALS: BP 113/60; PULSE 67; RESP 20; TEMP 98; O2SAT 92
[2017-10-11] MEDS: INSULIN ASPART SUPPLEMENTAL SCALE SQ SCH ×2 (08:00→12:00)
[2017-10-11] MEDS: ISOSORBIDE MONONITRATE 60 MG TAB PO SCH (08:38)
[2017-10-11] MEDS: SODIUM CHLORIDE 0.9% FLUSH 10 ML FLUSH IV FLUSH SCH (08:39)
[2017-10-11] MEDS: ASPIRIN EC 81 MG TABEC PO SCH (08:39)
[2017-10-11] MEDS: METOPROLOL TARTRATE 25 MG TAB PO SCH (08:39)
[2017-10-11] MEDS: HEPARIN SODIUM - SQ 10,000 UNITS/ML VIAL SQ SCH (08:39)
[2017-10-11] MEDS: DOCUSATE SODIUM 50 MG/SENNA 8.6 MG TAB PO SCH (08:39)
--- NOTE | 2017-10-11 09:01 | PD.CARD.PN ---
Subjective Subjective Remarks Feels well. Denies CP, dyspnea, palpitations. Slept well. Mild lightheadedness on standing. Objective Medications Item Value Date Time Metoprolol 25 mg 10/10/17 2100 Tartrate Q12HR/PO 10/11/17 0839 (Lopressor) Atorvastatin 40 mg 10/10/17 2100 Calcium HS/PO 10/10/17 2321 (Lipitor) Isosorbide 60 mg 10/10/17 1200 Mononitrate DAILY/PO 10/11/17 0838 (Imdur) Nitroglycerin 0.5 inch 10/10/17 1030 (Nitroglycerin Q6HR/TOPICAL 10/11/17 0644 2% Oint) Aspirin 81 mg 10/10/17 0900 (Ecotrin Ec) DAILY/PO 10/11/17 0839 Current Medications Medications (Trade) Dose Ordered Sig/Suni Route Start Time Stop Time Status Last Admin (D50w (Vial) Inj) 50 ml UNSCH PRN IV PUSH 10/10/17 03:30 (Glucagon Inj) 1 mg UNSCH PRN OTHER 10/10/17 03:30 (NovoLOG SUPPLEMENTAL SCALE) 1 ACHS SLIDING SCALE SQ 10/10/17 08:00 (NS Flush) 2 ml UNSCH PRN IV FLUSH 10/10/17 03:30 10/10/17 06:32 (NS Flush) 2 ml BID IV FLUSH 10/10/17 09:00 10/11/17 08:39 (Zofran Inj) 4 mg Q6H PRN IVP 10/10/17 03:30 (Heparin Inj) 5,000 units Q12H SQ 10/10/17 09:00 10/11/17 08:39 (Tylenol) 650 mg Q6H PRN PO 10/10/17 03:30 ([place] 5-325 Mg) 1 tab Q4H PRN PO 10/10/17 03:30 10/11/17 08:42 (Morphine Inj) 2 mg Q3H PRN IV PUSH 10/10/17 03:45 10/10/17 18:45 (Mally-Colace) 1 tab BID PO 10/10/17 09:00 10/11/17 08:39 (Milk Of Magnesia Liq) 30 ml Q12H PRN PO 10/10/17 03:30 (Senokot) 17.2 mg Q12H PRN PO 10/10/17 03:30 (Dulcolax Supp) 10 mg DAILY PRN RECTAL 10/10/17 03:30 (Lactulose Liq) 30 ml DAILY PRN PO 10/10/17 03:30 (Ecotrin Ec) 81 mg DAILY PO 10/10/17 09:00 10/11/17 08:39 (Glucotrol) 5 mg BIDAC PO 10/10/17 07:00 Future Hold 10/10/17 06:24 (Nitroglycerin 2% Oint) 0.5 inch Q6HR TOPICAL 10/10/17 10:30 10/11/17 06:44 (Lopressor) 25 mg Q12HR PO 10/10/17 21:00 10/11/17 08:39 (Imdur) 60 mg DAILY PO 10/10/17 12:00 10/11/17 08:38 (Lipitor) 40 mg HS PO 10/10/17 21:00 10/10/17 23:21 Vital Signs / I&O Vital Signs Date Time Temp Pulse Resp B/P (MAP) Pulse Ox O2 Delivery O2 Flow Rate FiO2 10/11/17 03:33 98.3 72 22 111/59 (76) 93 10/11/17 00:34 97.7 73 24 92/55 (67) 94 10/10/17 20:21 98.7 103 24 131/77 (95) 95 10/10/17 16:05 98.5 97 18 115/66 (82) 96 10/10/17 12:48 20 10/10/17 12:20 97.8 68 20 112/60 (77) 95 I/O 10/10/17 10/10/17 10/10/17 10/11/17 10/11/17 10/11/17 07:00 15:00 23:00 07:00 15:00 23:00 Intake Total 480 ml Balance 480 ml Intake Oral 480 ml # Voids 2 # Bowel Movements 1 Physical Exam GENERAL: Well developed, well nourished. No acute distress. HEENT: Jugular venous pressure is normal. CHEST: Lungs clear to auscultation bilaterally. Unlabored respiratory effort. CARDIAC: Regular rate and rhythm without S3, S4, or murmur. ABDOMEN: Soft, nontender, no hepatosplenomegaly. Bowel sounds present. EXTREMITIES: No clubbing, cyanosis, or edema. Laboratory Laboratory Tests Test 10/10/17 13:10 Troponin I LESS THAN 0.02 NG/ML Imaging Last 24 hours Impressions Lung Scan-VQ Nuclear Medicine 10/10/17 5630 Signed Impressions: Service Date/Time: Tuesday, October 10, 2017 01:47 - CONCLUSION: Normal pattern of pulmonary perfusion. Study is low probability for embolus. Robert Townsend MD Assessment and Plan Problem List: (1) Chest pain ICD Codes: R07.9 - Chest pain, unspecified Status: Acute Plan: Stable overnight. No further CP. Cardiac enzymes negative. V/Q low probability for PE. Echo pending. REC conservative management of possible underlying CAD; continue aspirin, beta maurilio, oral nitrate OK for discharge from cardiac standpoint (2) HTN (hypertension) ICD Codes: I10 - Essential (primary) hypertension Status: Chronic Plan: Stable. Normotensive on current regimen. Code Status full code Discussed Condition With patient Problem Qualifiers (1) Chest pain: Qualified Codes: R07.9 - Chest pain, unspecified (2) HTN (hypertension): Qualified Codes: I10 - Essential (primary) hypertension Shorty Hammond MD Oct 11, 2017 09:01
[2017-10-11] MEDS ORDERED: ISOS60TA PO (09:52)
[2017-10-11] MEDS ORDERED: METO25TA3 PO (09:52)
[2017-10-11] MEDS ORDERED: ECASA81 PO (09:52)
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
--- NOTE | 2017-10-11 11:10 | HHI.DCPOC ---
Discharge Care Plan Diagnosis: (1) Coronary artery disease (2) Chest pain (3) HTN (hypertension) Goals to Promote Your Health * To prevent worsening of your condition and complications * To maintain your health at the optimal level Directions to Meet Your Goals Take your medications as prescribed Follow your dietary instruction Follow activity as directed Keep your appointments as scheduled Take your immunizations and boosters as scheduled If your symptoms worsen call your PCP, if no PCP go to Urgent Care Center or Emergency Room Smoking is Dangerous to Your Health. Avoid second hand smoke Call the 24-hour hour crisis hotline for domestic abuse at Paz Man MD Oct 11, 2017 11:10
--- NOTE | 2017-10-11 14:56 | ECHRPT ---
Indication: CHEST PAIN CONCLUSIONS Normal left ventricular size. Wall thickness is normal. The left ventricular systolic function is normal with an estimated ejection fraction in the range of 60-65%. Aortic valve sclerosis is present. Trivial pulmonary valve regurgitation. BP: / HR: Rhythm: MEASUREMENTS (Male / Female) Normal Values Technical Quality:Technically difficult study 2D ECHO LV Diastolic Diameter PLAX 4.0 cm 4.2 - 5.9 / 3.9 - 5.3 cm LV Systolic Diameter PLAX 2.9 cm IVS Diastolic Thickness 1.0 cm 0.6 - 1.0 / 0.6 - 0.9 cm LVPW Diastolic Thickness 0.7 cm 0.6 - 1.0 / 0.6 - 0.9 cm LV Relative Wall Thickness 0.4 RV Internal Dim ED PLAX 2.0 cm DOPPLER Mitral E Point Velocity 78.5 cm/s Mitral A Point Velocity 99.7 cm/s Mitral E to A Ratio 0.8 TR Peak Velocity 168.0 cm/s TR Peak Gradient 11.3 mmHg FINDINGS LEFT VENTRICLE Normal left ventricular size. Wall thickness is normal. EF 60-65% RIGHT VENTRICLE Normal right ventricular size and systolic function. LEFT ATRIUM The left atrial size is normal. RIGHT ATRIUM The right atrial size is normal. ATRIAL SEPTUM Normal atrial septal thickness without atrial level shunting by limited color doppler interrogation. AORTA The aortic root and proximal ascending aorta are normal in size on limited imaging. MITRAL VALVE Structurally normal mitral valve. No mitral valve stenosis or regurgitation. AORTIC VALVE Aortic valve sclerosis is present. TRICUSPID VALVE Structurally normal tricuspid valve. No tricuspid valve stenosis or regurgitation. PULMONARY VALVE Trivial pulmonary valve regurgitation. VESSELS The inferior vena cava is normal in size. PERICARDIUM No pericardial effusion. Curry Rolle MD, FACC (Electronically Signed) Final Date:11 October 2017 14:54
== END 2017-10-11 13:53 | disposition home or self-care (01) ==
LOC: NEPC 21:25 → NEDA 10-10 03:21 → NEPGCP 10-10 05:35
PROVIDERS: ADMIT Family Medicine; ATTEND Family Medicine
DX: I25.10 Atherosclerotic heart disease of native coronary artery without angina pectoris (principal); I12.9 Hypertensive chronic kidney disease with stage 1 through stage 4 chronic kidney disease, or unspecified chronic kidney disease; N18.9 Chronic kidney disease, unspecified; R07.9 Chest pain, unspecified; E78.5 Hyperlipidemia, unspecified; J98.11 Atelectasis; E11.22 Type 2 diabetes mellitus with diabetic chronic kidney disease; F17.210 Nicotine dependence, cigarettes, uncomplicated; Z79.82 Long term (current) use of aspirin; Z79.84 Long term (current) use of oral hypoglycemic drugs; W19.XXXA Unspecified fall, initial encounter
CPT/HCPCS: 71010; 76775; 78582; 80053; 80061; 82550; 82552; 82948; 83036; 83690; 83880; 84443; 84484; 85025; 85379; 85610; 85730; 93005; 93306; 96372; 96374; 96376; 99285; A9540; A9567; G0378; J1644; J2270

== ENCOUNTER 2017-11-10 14:26 | Emergency (ER) | payer OTHER ==
[~2017-11-10] VITALS: Ht 167.6 cm; Wt 86.4 kg
[~2017-11-10 14:26] MED LIST: ECASA81 PO; GLIP5TAB8 PO; ISOS60TA PO; LOVA10TA PO; METO25TA3 PO
[2017-11-10 14:27] VITALS: BP 130/91; PULSE 110; RESP 20; TEMP 98.9; O2SAT 95
--- NOTE | 2017-11-10 14:59 | RADRPT ---
EXAM DATE/TIME: 11/10/2017 14:51 [facility] COMPARISON: CHEST SINGLE AP, October 09, 2017, 21:46. INDICATIONS : Rib pain when taking in a deep breath. No known injury. MEDICAL HISTORY : None. SURGICAL HISTORY : None. ENCOUNTER: Initial ACUITY: 2 weeks PAIN SCORE: 0/10 LOCATION: Bilateral chest FINDINGS: PA and lateral views of the chest demonstrate some pleural thickening left mid chest possibly related to old rib fractures unchanged. The cardiomediastinal contours are unremarkable. Osseous structure s are intact. CONCLUSION: Pleural thickening and some healing rib fractures on the left. Ashok Lopez MD on November 10, 2017 at 14:55 Board Certified Radiologist. This report was verified electronically.
--- NOTE | 2017-11-10 15:11 | RADRPT ---
EXAM DATE/TIME: 11/10/2017 14:55 [facility] COMPARISON: No previous studies available for comparison. INDICATIONS : Low back pain after a fall. MEDICAL HISTORY : None. SURGICAL HISTORY : None. ENCOUNTER: Initial ACUITY: 3 days PAIN SCORE: 8/10 LOCATION: Lower back. FINDINGS: There is severe degenerative disc change at the lumbosacral junction with less severe degenerative ch germaine elsewhere in the spine. No definite evidence of fracture or destructive change. CONCLUSION: No acute bony injury Robert Mistry MD on November 10, 2017 at 15:05 Board Certified Radiologist. This report was verified electronically.
--- NOTE | 2017-11-10 15:19 | RADRPT ---
EXAM DATE/TIME: 11/10/2017 14:53 [facility] COMPARISON: No previous studies available for comparison. INDICATIONS : Head pain due to fall. RADIATION DOSE: 56.35 CTDIvol (mGy) MEDICAL HISTORY : Hypertension. Diabetes mellitus type 2. SURGICAL HISTORY : None. ENCOUNTER: Initial ACUITY: 3 days PAIN SCALE: 8/10 LOCATION: Bilateral cranial TECHNIQUE: Multiple contiguous axial images were obtained of the head. Using automated exposure control and adj ustment of the mA and/or kV according to patient size, radiation dose was kept as low as reasonably a chievable to obtain optimal diagnostic quality images. DICOM format image data is available electro nically for review and comparison. FINDINGS: CEREBRUM: The ventricles are normal for age. No evidence of midline shift, mass lesion, hemorrhage or acute in farction. No extra-axial fluid collections are seen. POSTERIOR FOSSA: The cerebellum and brainstem are intact. The 4th ventricle is midline. The cerebellopontine angle i s unremarkable. EXTRACRANIAL: Left orbit surgery with a residual calcified globe SKULL: The calvaria is intact. No evidence of skull fracture. CONCLUSION: Normal examination except for previous injury to the left globe. Intracranial exam is normal. Ashok Lopez MD on November 10, 2017 at 15:14 Board Certified Radiologist. This report was verified electronically.
--- NOTE | 2017-11-10 15:22 | RADRPT ---
EXAM DATE/TIME: 11/10/2017 14:55 [facility] COMPARISON: No previous studies available for comparison. INDICATIONS : Neck pain due to fall. RADIATION DOSE: 26.90 CTDIvol (mGy) MEDICAL HISTORY : Hypertension. Diabetes mellitus type 2. SURGICAL HISTORY : None. ENCOUNTER: Initial ACUITY: 3 days PAIN SCALE: 8/10 LOCATION: Bilateral neck region. TECHNIQUE: Volumetric scanning of the cervical spine was performed. Multiplanar reconstructions in the sagittal, coronal and oblique axial planes were performed. Using automated exposure control and adjustment o f the mA and/or kV according to patient size, radiation dose was kept as low as reasonably achievable to obtain optimal diagnostic quality images. DICOM format image data is available electronically f or review and comparison. FINDINGS: VERTEBRAE: Normal vertebral body height. ALIGNMENT: No evidence of subluxation. C2-C3: The bony spinal canal is normal in size. No evidence of disc bulge or herniation. The neural forami na are bilaterally patent. C3-C4: There is moderate intervertebral disc space narrowing without evidence of fracture . The bony spinal canal is normal in size. No evidence of disc bulge or herniation. The neural foramina are bilateral ly patent. C4-C5: The bony spinal canal is normal in size. No evidence of disc bulge or herniation. The neural forami na are bilaterally patent. C5-C6: The bony spinal canal is normal in size. No evidence of disc bulge or herniation. The neural forami na are bilaterally patent. C6-C7: The bony spinal canal is normal in size. No evidence of disc bulge or herniation. The neural forami na are bilaterally patent. C7-T1: The bony spinal canal is normal in size. No evidence of disc bulge or herniation. The neural forami na are bilaterally patent. CONCLUSION: Normal examination except for degenerative disc space narrowing at C3-4. Ashok Lopez MD on November 10, 2017 at 15:17 Board Certified Radiologist. This report was verified electronically.
--- NOTE | 2017-11-10 15:32 | PD ---
HPI Chief Complaint: Fall Time Seen by Provider: 15:29 Travel History International Travel<30 days: No Contact w/Intl Traveler<30days: No Traveled to known affect area: No History of Present Illness HPI 62-year-old male presents the emergency department status post fall 2 days ago. Patient states he fell on 3 steps. Patient states the steps were rotten and broken as he was walking up some. 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 He has injuries to the head, neck, and right sided rib and low back pain. CT of the head and neck are ordered in triage as well as x-rays of the chest and lumbar spine. Patient states his pain is about a 6 out of 10. He goes to chronic pain management. He has no known drug allergies. PFSH Past Medical History Cancer: No Cardiovascular Problems: Yes High Cholesterol: Yes Diabetes: Yes Diminished Hearing: No Endocrine: Yes Genitourinary: No Musculoskeletal: Yes (herniated disc ) Psychiatric: No Respiratory: No Past Surgical History Appendectomy: Yes Other Surgery: Yes (right hip) Social History Alcohol Use: No Tobacco Use: No Substance Use: No Allergies-Medications (Allergen,Severity, Reaction): Coded Allergies: No Known Allergies (Unverified , 10/09/17) Reported Meds & Prescriptions Reported Meds & Active Scripts Active Aspirin DR (Aspirin) 81 Mg Tabdr 81 Mg PO DAILY Metoprolol Tartrate 25 Mg Tab 25 Mg PO Q12HR Isosorbide Mononitrate ER (Isosorbide Mononitrate) 60 Mg Tab 60 Mg PO DAILY Reported Lovastatin 10 Mg Tab 10 Mg PO DAILY Glipizide 5 Mg Tab 5 Mg PO BIDAC Take 30 minutes before a meal Review of Systems Except as stated in HPI: all other systems reviewed are Neg General / Constitutional: No: Fever Eyes: No: Visual changes HENT: No: Headaches Cardiovascular: No: Chest Pain or Discomfort Respiratory: No: Shortness of Breath Gastrointestinal: No: Abdominal Pain Genitourinary: No: Dysuria Musculoskeletal: Positive: Myalgias, Arthralgias, Pain Skin: No Rash Neurologic: No: Weakness Psychiatric: No: Depression Endocrine: No: Polydipsia Hematologic/Lymphatic: No: Easy Bruising Physical Exam Narrative GENERAL: Patient appears in no acute distress. SKIN: Warm and dry. Patient has a couple small bruises without abrasions or open wounds. HEAD: Atraumatic. Normocephalic. He complains of mild tenderness to the left anterior forehead. EYES: Pupils equal and round. No scleral icterus. No injection or drainage. 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 Mucous membranes pink and moist. Pharynx is clear. Airway is patent. NECK: Trachea midline. No JVD. No bony tenderness or step-off. Mild soft tissue tenderness noted. CARDIOVASCULAR: Regular rate and rhythm. RESPIRATORY: No accessory muscle use. Clear to auscultation. Breath sounds equal bilaterally. Patient has mild left-sided anterior thoracic tenderness with palpation. There is no obvious crepitus or subcutaneous emphysema. GASTROINTESTINAL: Abdomen soft, non-tender, nondistended. Hepatic and splenic margins not palpable. MUSCULOSKELETAL: Extremities without clubbing, cyanosis, or edema. No obvious deformities. NEUROLOGICAL: Awake and alert. No obvious cranial nerve deficits. Motor grossly within normal limits. Five out of 5 muscle strength in the arms and legs. Normal speech. PSYCHIATRIC: Appropriate mood and affect; insight and judgment normal. Data Data Last Documented VS Vital Signs Date Time Temp Pulse Resp B/P (MAP) Pulse Ox O2 Delivery O2 Flow Rate FiO2 11/10/17 14:27 98.9 110 20 130/91 (104) 95 Room Air Orders Orders Ct Brain W/O Iv Contrast(Rout) (11/10/17 ) Ct Cerv Spine W/O Contrast (11/10/17 ) Spine, Lumbar - Ltd (Ap & Lat) (11/10/17 ) Chest, Pa & Lat (11/10/17 ) MDM Medical Decision Making Medical Screen Exam Complete: Yes Emergency Medical Condition: Yes Medical Record Reviewed: Yes Differential Diagnosis Mechanical fall. Facial contusion. Thoracic contusion. Low back pain. Narrative Course Patient is medically stable at time of exam. X-rays and CT exams are all negative for acute findings per radiologist. 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 Patient is to follow with his pain management provider as needed. He can return if symptoms worsen as needed. Diagnosis Primary Impression: Fall Qualified Codes: W19.XXXA - Unspecified fall, initial encounter Additional Impressions: Contusion of face Qualified Codes: S00.83XA - Contusion of other part of head, initial encounter Contusion of thoracic wall Qualified Codes: S20.212A - Contusion of left front wall of thorax, initial encounter Referrals: Pain Management Patient Instructions: Contusion in Adults (ED), General Instructions Additional Instructions: X-rays and CT exams are all negative for acute findings per radiologist. 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 Patient is to follow with his pain management provider as needed. He can return if symptoms worsen as needed. Med/Other Pt SpecificInfo: No Change to Meds Disposition: 01 DISCHARGE HOME Condition: Stable Clovis Mendoza Nov 10, 2017 15:32
== END 2017-11-10 16:07 | disposition home or self-care (01) ==
LOC: NEPD 14:26
DX: S00.83XA Contusion of other part of head, initial encounter (principal); S20.212A Contusion of left front wall of thorax, initial encounter; M50.31 Other cervical disc degeneration, high cervical region; M54.5 Low back pain; M79.1 Myalgia; E78.00 Pure hypercholesterolemia, unspecified; E11.9 Type 2 diabetes mellitus without complications; W10.9XXA Fall (on) (from) unspecified stairs and steps, initial encounter; Z79.82 Long term (current) use of aspirin
CPT/HCPCS: 70450; 71046; 72100; 72125; 99285